=== PATIENT | male | born 1980 | race Caucasian/White ===

== ENCOUNTER 2017-10-04 21:55 | Emergency (ER) | payer OTHER ==
[~2017-10-04] VITALS: Ht 170.2 cm; Wt 125.2 kg
[2017-10-04 22:10] VITALS: Ht 170.2 cm; Wt 125.2 kg
[2017-10-04 23:51] VITALS: BP 136/86
== END 2017-10-04 23:51 | disposition home or self-care (01) ==
LOC: ED 21:55
DX: S01.551A Open bite of lip, initial encounter (principal); W54.0XXA Bitten by dog, initial encounter; Y93.89 Activity, other specified; Y92.89 Other specified places as the place of occurrence of the external cause; Y99.8 Other external cause status